=== PATIENT | female | born 1975 ===

== ENCOUNTER 2020-11-12 14:25 | Emergency (ER) | payer OTHER ==
[~2020-11-12] VITALS: Ht 165.1 cm; Wt 105.6 kg
[2020-11-12 14:36] VITALS: BP 131/81
--- NOTE | 2020-11-12 17:04 | NUR ---
Patient not in lobby x3, no listed phone number to call patient. aware.
== END 2020-11-12 17:06 | disposition left against medical advice (07) ==
LOC: ER 14:26
DX: N93.9 Abnormal uterine and vaginal bleeding, unspecified (principal); Z53.21 Procedure and treatment not carried out due to patient leaving prior to being seen by health care provider